=== PATIENT | male | born 1965 | race Hispanic/Latino ===

== ENCOUNTER 2019-02-14 15:30 | Inpatient (IN) | payer OTHER | END 2019-02-22 14:48 | disposition home or self-care (01) | LOC: 2CH 02-18 04:09 → 2DH 02-20 16:52 → 2AH 15:30 → 2CV 02-17 16:03 → 2AH 02-15 21:07 | PROC: 4A023N7 Measurement of Cardiac Sampling and Pressure, Left Heart, Percutaneous Approach (ICD-10-PCS; principal; 2019-02-17 14:22) | PROC: B2111ZZ Fluoroscopy of Multiple Coronary Arteries using Low Osmolar Contrast (ICD-10-PCS; 2019-02-17 14:22) | PROC: B2151ZZ Fluoroscopy of Left Heart using Low Osmolar Contrast (ICD-10-PCS; 2019-02-17 14:22) | PROC: B41F1ZZ Fluoroscopy of Right Lower Extremity Arteries using Low Osmolar Contrast (ICD-10-PCS; 2019-02-17 14:22) | DX: I21.4 Non-ST elevation (NSTEMI) myocardial infarction (principal); N17.0 Acute kidney failure with tubular necrosis; I25.5 Ischemic cardiomyopathy ==

== ENCOUNTER → 2019-03-19 | Outpatient (CLI) | payer SELFPAY ==
[~2019-03-19] MED LIST: ATOR40TA69 PO; CLOP75TA14 PO; FURO20TA6 PO; LISI2.5T2 PO; METFORMINA PO; METO25 PO; [UNRECOGNIZED DRUG - OTHER] PO
== END | disposition home or self-care (01) ==
LOC: RAH 08:03
PROVIDERS: ATTEND Internal Medicine Cardiovascular Disease
DX: I82.431 Acute embolism and thrombosis of right popliteal vein (principal)
CPT/HCPCS: 93971